=== PATIENT | male | born 1965 | race African-American/Black ===

== ENCOUNTER 2021-06-28 23:10 | Observation (INO) | payer MEDICARE, MEDICAID ==
[2021-06-29 00:21] VITALS: BMI 49.1
[2021-06-29 01:31] LABS: Magnesium 2.1 mg/dL (1.6-2.6)
[2021-06-29 01:38] LABS: Troponin I 0.047 ng/mL (< 0.028)
[2021-06-29] MEDS: Nitroglycerin 2% Ointment 1 INCH/1 GM Packet TOP SCH ×4 (02:18→18:06)
[2021-06-29] MEDS: traMADol HCl 50 MG TAB PO SCH ×4 (02:18→18:06)
[2021-06-29 05:57] LABS: Cardiac Risk 3.4 (Less than 4.5); Uric Acid 5.7 mg/dL (3.5-7.2)
[2021-06-29] MEDS ORDERED: Furosemide 40 MG/4 ML VIAL SLOW IVP SCH (06:00)
[2021-06-29 06:03] LABS: #Monocytes 0.3 10x3/uL (0.0-1.1); #Neutrophils 13.8 10x3/uL (1.5-8.4); %Basophils 0.2 % (0.0-2.0); %Lymphocytes 14.3 % (18.0-47.0); %Monocytes 1.6 % (0.0-10.0); %Neutrophils 83.4 % (40.0-75.0); Hemoglobin 13.5 g/dL (13.5-17.5); Mean Corpuscular HGB CONC 30.6 g/dL (32.0-36.0); Mean Corpuscular Hemoglobin 26.5 pg (27.0-33.0); Mean Corpuscular Volume 86.6 fl (81.2-95.1); Mean Platelet Volume 10.8 fl (7.4-10.4); Platelet Count 329 10x3/uL (150-450); RBC Distribution Width 13.2 % (11.5-14.5); Red Blood Cell (RBC) Count 5.09 10x6/uL (4.32-5.72); White Blood Cell (WBC) Count 16.6 10x3/uL (3.5-10.5)
[2021-06-29] MEDS ORDERED: Enoxaparin Sodium 40 MG/0.4 ML SYRINGE SC SCH (09:00)
[2021-06-29] MEDS ORDERED: Aspirin 81 mg Enteric Coated Tablet PO SCH (09:00)
[2021-06-29] MEDS ORDERED: Furosemide 20 MG TAB PO SCH ×2 (09:00→14:15)
[2021-06-29] MEDS ORDERED: CeleCOXIB 100 MG CAP PO SCH (09:00)
[2021-06-29] MEDS ORDERED: metFORMIN 500 MG TAB PO SCH (09:00)
[2021-06-29] MEDS ORDERED: Aspirin Chewable 81 MG TAB PO SCH (09:00)
[2021-06-29] MEDS ORDERED: Carvedilol 25 MG TAB PO SCH (09:00)
[2021-06-29] MEDS ORDERED: Amlodipine 10 MG TAB PO SCH (09:00)
[2021-06-29] MEDS ORDERED: Losartan Potassium 50 MG TAB PO SCH (09:00)
[2021-06-29] MEDS ORDERED: Minoxidil 2.5 MG TAB PO SCH (09:00)
[2021-06-29 13:11] LABS: Hemoglobin A1c 6.9 % (4.0-6.0)
[2021-06-29 17:26] VITALS: BP 106/55; TEMP 97.9
[2021-06-29] MEDS ORDERED: Furosemide 40 MG TAB PO SCH (21:00)
[2021-06-29] MEDS ORDERED: Atorvastatin Calcium 10 MG TAB PO SCH (21:00)
== END 2021-06-29 18:38 | disposition home or self-care (01) ==
LOC: UNDOADMOB 23:10 → CSHTELE 23:10
PROVIDERS: ADMIT Family Medicine; ATTEND Internal Medicine
DX: I11.0 Hypertensive heart disease with heart failure (principal); I50.43 Acute on chronic combined systolic (congestive) and diastolic (congestive) heart failure; J81.0 Acute pulmonary edema; I24.9 Acute ischemic heart disease, unspecified; I42.8 Other cardiomyopathies; J44.9 Chronic obstructive pulmonary disease, unspecified; E66.01 Morbid (severe) obesity due to excess calories; Z79.899 Other long term (current) drug therapy; Z79.82 Long term (current) use of aspirin; Z79.84 Long term (current) use of oral hypoglycemic drugs; E11.9 Type 2 diabetes mellitus without complications; E78.5 Hyperlipidemia, unspecified; G47.33 Obstructive sleep apnea (adult) (pediatric); F17.210 Nicotine dependence, cigarettes, uncomplicated
CPT/HCPCS: 36415; 36416; 80061; 83036; 83735; 84439; 84443; 84481; 84484; 84550; 85025; 93005; 93010; 93306; 96372; 96374; 97139; G0378; J1650; J1940

== ENCOUNTER 2023-07-10 10:04 | Observation (INO) | payer OTHER, MEDICAID ==
[2023-07-10] MEDS ORDERED: Aspirin Chewable 81 MG TAB ONE (10:25)
[2023-07-10 10:43] LABS: #Basophils 0.1 10x3/uL (0.0-0.2); #Eosinphils 0.1 10x3/uL (0.0-0.5); #Monocytes 0.9 10x3/uL (0.0-1.1); #Neutrophils 10.2 10x3/uL (1.5-8.4); %Basophils 0.4 % (0.0-2.0); %Eosinophils 0.8 % (0.0-6.0); %Lymphocytes 28.4 % (18.0-47.0); %Monocytes 5.5 % (0.0-10.0); %Neutrophils 64.4 % (40.0-75.0); Hematocrit 47.1 % (38.8-50.0); Mean Corpuscular HGB CONC 31.8 g/dL (32.0-36.0); Mean Corpuscular Hemoglobin 26.8 pg (27.0-33.0); Mean Corpuscular Volume 84.3 fl (81.2-95.1); Mean Platelet Volume 10.6 fl (7.4-10.4); Platelet Count 329 10x3/uL (150-450); RBC Distribution Width 12.9 % (11.5-14.5); Red Blood Cell (RBC) Count 5.59 10x6/uL (4.32-5.72); White Blood Cell (WBC) Count 15.8 10x3/uL (3.5-10.5)
[2023-07-10 11:06] LABS: ALT (SGPT) 25 U/L (8-55); AST (SGOT) 15 U/L (5-34); Albumin 4.2 g/dL (3.5-5.0); Alkaline Phosphatase 85 U/L (40-110); Anion Gap 13 mmol/L (10-20); BUN (Urea Nitrogen) 11 mg/dL (8.4-25.7); Bilirubin, Total 0.8 mg/dL (0.2-1.2); Calc. Creatinine Clearance 0 mL/min (70-130); Calcium 9.1 mg/dL (7.8-10.44); Carbon Dioxide 25 mmol/L (22-29); Chloride 104 mmol/L (98-107); Estimated GFR 104; Globulin 2.8 g/dL (2.4-3.5); Glucose 229 mg/dL (70-105); Potassium 4.4 mmol/L (3.5-5.1); Sodium 138 mmol/L (136-145)
[2023-07-10 11:07] LABS: Troponin I 0.021 ng/mL (< 0.028)
[2023-07-10 13:12] LABS: Troponin I 0.019 ng/mL (< 0.028)
[2023-07-10] MEDS ORDERED: Nitroglycerin 0.4 MG TAB (25 Tab Bottle) SL PRN (15:24)
[2023-07-10] MEDS ORDERED: Calcium Carbonate 500 MG ChewTAB PO PRN (15:25)
[2023-07-10] MEDS ORDERED: Ondansetron ODT 4 MG TAB PO PRN (15:25)
[2023-07-10] MEDS ORDERED: Ondansetron PF 4 MG/2 ML Vial IVP PRN (15:25)
[2023-07-10] MEDS ORDERED: Acetaminophen 325 MG TAB PO PRN (15:25)
[2023-07-10] MEDS ORDERED: traMADol HCl 50 MG TAB PO PRN (15:26)
[2023-07-10] MEDS ORDERED: Dextrose 5% in Water 1,000 ML IV PRN (15:43)
[2023-07-10] MEDS ORDERED: Insulin Regular 300 UNITS/3 ML VIAL SC PRN ×2 (15:43)
[2023-07-10] MEDS ORDERED: Glucagon 1 MG/ML KIT IM PRN (15:43)
[2023-07-10] MEDS ORDERED: Dextrose 50% Abboject 50 ML SYRINGE SLOW IVP PRN (15:43)
[2023-07-10] MEDS ORDERED: Acetaminophen/Codeine 30-300mg Tablet PO PRN (16:07)
[2023-07-10] MEDS ORDERED: Mag-Al 1200 mg/1200 mg/30 ML UDCUP PO PRN (16:09)
[2023-07-10] MEDS: metFORMIN 500 MG TAB PO SCH (16:36)
[2023-07-10 16:44] VITALS: BMI 48.8
[2023-07-10 16:52] LABS: Troponin I 0.019 ng/mL (< 0.028)
[2023-07-10] MEDS ORDERED: Atorvastatin Calcium 10 MG TAB PO SCH (21:00)
[2023-07-10] MEDS: Gabapentin 300 MG CAP PO SCH (21:41)
[2023-07-10] MEDS: Carvedilol 25 MG TAB PO SCH (21:42)
[2023-07-10] MEDS: Minoxidil 2.5 MG TAB PO SCH (21:42)
[2023-07-11 04:59] LABS: #Basophils 0.1 10x3/uL (0.0-0.2); #Eosinphils 0.2 10x3/uL (0.0-0.5); #Neutrophils 8.3 10x3/uL (1.5-8.4); %Basophils 0.5 % (0.0-2.0); %Eosinophils 1.4 % (0.0-6.0); %Lymphocytes 33.9 % (18.0-47.0); %Neutrophils 56.8 % (40.0-75.0); Hematocrit 44.8 % (38.8-50.0); Mean Corpuscular HGB CONC 31.3 g/dL (32.0-36.0); Mean Corpuscular Hemoglobin 26.2 pg (27.0-33.0); Mean Corpuscular Volume 83.7 fl (81.2-95.1); Mean Platelet Volume 10.6 fl (7.4-10.4); Platelet Count 316 10x3/uL (150-450); RBC Distribution Width 13.1 % (11.5-14.5); Red Blood Cell (RBC) Count 5.35 10x6/uL (4.32-5.72); White Blood Cell (WBC) Count 14.6 10x3/uL (3.5-10.5)
[2023-07-11 05:06] LABS: Anion Gap 13 mmol/L (10-20); BUN (Urea Nitrogen) 12 mg/dL (8.4-25.7); Calc. Creatinine Clearance 245 mL/min (70-130); Calcium 8.8 mg/dL (7.8-10.44); Carbon Dioxide 24 mmol/L (22-29); Chloride 104 mmol/L (98-107); Estimated GFR 104; Glucose 182 mg/dL (70-105); Potassium 3.9 mmol/L (3.5-5.1); Sodium 137 mmol/L (136-145)
[2023-07-11] MEDS: Carvedilol 25 MG TAB PO SCH (08:37)
[2023-07-11] MEDS: metFORMIN 500 MG TAB PO SCH (08:37)
[2023-07-11] MEDS: Gabapentin 300 MG CAP PO SCH (08:37)
[2023-07-11] MEDS: Minoxidil 2.5 MG TAB PO SCH (08:38)
[2023-07-11] MEDS ORDERED: Aspirin 81 mg Enteric Coated Tablet PO SCH ×2 (09:00)
[2023-07-11] MEDS ORDERED: Furosemide 40 MG TAB PO SCH ×2 (09:00)
[2023-07-11] MEDS ORDERED: Amlodipine 10 MG TAB PO SCH (09:00)
[2023-07-11] MEDS ORDERED: Losartan 50 MG TAB PO SCH (09:00)
[2023-07-11] MEDS ORDERED: Aspirin Chewable 81 MG TAB PO SCH (09:00)
[2023-07-11] MEDS ORDERED: Enoxaparin 40 MG (0.4 mL) SYRINGE SC SCH (09:00)
[2023-07-11] MEDS ORDERED: Furosemide 20 MG TAB PO SCH (09:00)
[2023-07-11 12:03] VITALS: BP 150/75; TEMP 98.3
== END 2023-07-11 12:00 | disposition home or self-care (01) ==
LOC: CSHERS 10:04 → CSHTELE 13:54
PROVIDERS: ADMIT Internal Medicine; ATTEND Internal Medicine
DX: R07.9 Chest pain, unspecified (principal); E11.9 Type 2 diabetes mellitus without complications; I11.0 Hypertensive heart disease with heart failure; E66.01 Morbid (severe) obesity due to excess calories; E78.5 Hyperlipidemia, unspecified; G89.4 Chronic pain syndrome; F17.200 Nicotine dependence, unspecified, uncomplicated; G47.33 Obstructive sleep apnea (adult) (pediatric); F10.90 Alcohol use, unspecified, uncomplicated; I50.40 Unspecified combined systolic (congestive) and diastolic (congestive) heart failure; Z79.82 Long term (current) use of aspirin; Z68.42 Body mass index [BMI] 45.0-49.9, adult; Z79.84 Long term (current) use of oral hypoglycemic drugs; Z79.899 Other long term (current) drug therapy; I25.5 Ischemic cardiomyopathy; I25.10 Atherosclerotic heart disease of native coronary artery without angina pectoris; Z98.890 Other specified postprocedural states
CPT/HCPCS: 36415; 36416; 71045; 80048; 80053; 83880; 84484; 85025; 93005; 93010; 94760; 96372; G0378; J1650; J1815